=== PATIENT | female | born 1955 | race Caucasian/White ===

== ENCOUNTER 2018-08-31 01:30 | Emergency (ER) | payer BC ==
[~2018-08-31] VITALS: Ht 162.6 cm; Wt 102.1 kg
[2018-08-31 01:30] VITALS: BP_SYST 160
[2018-08-31] MEDS ORDERED: IBUPROFEN 600 MG TABLET PO ONE (01:45)
[2018-08-31 02:04] VITALS: BP_SYST 160
== END 2018-08-31 02:04 | disposition home or self-care (01) ==
LOC: SED 01:30
DX: S63.502A Unspecified sprain of left wrist, initial encounter (principal); E78.00 Pure hypercholesterolemia, unspecified; I10 Essential (primary) hypertension; X50.0XXA Overexertion from strenuous movement or load, initial encounter; Y93.89 Activity, other specified; Y92.89 Other specified places as the place of occurrence of the external cause; Y99.8 Other external cause status
CPT/HCPCS: 99283

== ENCOUNTER 2018-09-05 10:32 | Emergency (ER) | payer BC ==
[~2018-09-05] VITALS: Ht 162.6 cm; Wt 108.9 kg
[2018-09-05 10:39] VITALS: BP_SYST 111
--- NOTE | 2018-09-05 10:42 | NUR ---
Patient to ER bed 07 for evaluation. Side rails up. Report given to SIENA FARRELL.
--- NOTE | 2018-09-05 11:50 | NUR ---
KENY BLAIR at bedside examining patient.
[2018-09-05] MEDS: traMADol HCL HCL 50 MG TABLET (ULTRAM) PO ONE (12:17)
[2018-09-05] MEDS: KETOROLAC TROMETHAMINE 30 MG VIAL IM ONE (12:17)
--- NOTE | 2018-09-05 13:00 | NUR ---
Pt assisted to sitting position. Pt able to put slight pressure on R lower extremity with pain. Pt reports lower pain level 2/10 s/p medication, but cannot stand up at this time. Pt states friend will be picking her up after 2pm. Pt assisted into bed to position of comfort. Will continue t omonitor.
--- NOTE | 2018-09-05 13:55 | NUR ---
Patient given written and verbal discharge instructions and verbalizes understanding. ER MD BLAIR discussed with patient the results and treatment provided. Patient in stable condition. ID arm band removed. Rx of TRAMADOL given. Patient educated on pain management and to follow up with PMD. Pain Scale 2. Opportunity for questions provided and answered. Medication side effect fact sheet provided.
== END 2018-09-05 13:55 | disposition home or self-care (01) ==
LOC: SED 10:32
DX: S86.911A Strain of unspecified muscle(s) and tendon(s) at lower leg level, right leg, initial encounter (principal); M79.10 Myalgia, unspecified site; E78.00 Pure hypercholesterolemia, unspecified; I10 Essential (primary) hypertension; X50.0XXA Overexertion from strenuous movement or load, initial encounter; Y93.89 Activity, other specified; Y92.89 Other specified places as the place of occurrence of the external cause; Y99.8 Other external cause status
CPT/HCPCS: 96372; 99283; J1885

== ENCOUNTER 2018-10-17 06:01 | Inpatient (IN) | payer BC ==
[~2018-10-17] VITALS: Ht 160 cm; Wt 99.8 kg
[2018-10-17 06:44] VITALS: BP_SYST 101
[2018-10-17 07:25] LABS: BASOPHILS % (AUTO) 0.2 % (0.0-2.0); EOSINOPHILS # (AUTO) 2.2 K/uL (0.0-0.4); HEMATOCRIT 31.1 % (36-48); HEMOGLOBIN 10.3 g/dL (12.0-16.0); LYMPHOCYTES # (AUTO) 0.4 K/uL (1.0-5.5); LYMPHOCYTES % (AUTO) 2.7 % (20.5-51.5); MEAN CORPUSCULAR HEMOGLOBIN 31 pg (27-31); MEAN CORPUSCULAR HGB CONC 33 % (32-36); MEAN CORPUSCULAR VOLUME 93 fL (79.0-98.0); MONOCYTES # (AUTO) 0.7 K/uL (0.0-1.0); MONOCYTES % (AUTO) 4.6 % (1.7-9.3); NEUTROPHILS # (AUTO) 12.6 K/uL (1.8-7.7); NEUTROPHILS % (AUTO) 78.5 % (40.0-70.0); PLATELET COUNT (AUTO) 66 K/uL (130-430); RED BLOOD CELL COUNT(AUTO) 3.33 MIL/uL (4.2-6.2); RED CELL DISTRIBUTION WIDTH 15.7 % (9.0-15.0)
[2018-10-17 07:40] LABS: CALCIUM 7.1 mg/dL (8.4-11.0); CREATININE 3.03 mg/dL (0.55-1.30); TOTAL BILIRUBIN 0.6 mg/dL (0.0-1.0)
[2018-10-17 08:00] VITALS: BP_SYST 95
[2018-10-17] MEDS ORDERED: MORPHINE 2 MG/ML INJ. SYRINGE IVP PRN (09:00)
[2018-10-17] MEDS ORDERED: MORPHINE 4 MG/ML INJ. SYRINGE IVP PRN (09:00)
[2018-10-17] MEDS ORDERED: METOCLOPRAMIDE HCL 10 MG/2 ML VIAL IVP PRN (09:00)
[2018-10-17] MEDS ORDERED: DEXTROSE 50% JECT 50 ML DISP.SYRIN IVP PRN (09:15)
[2018-10-17] MEDS ORDERED: THIAMINE HCL 100 MG TABLET PO ONE (09:15)
[2018-10-17] MEDS ORDERED: LEVOFLOXACIN 500 MG/D5W 100 ML IV ONE (09:30)
[2018-10-17] MEDS ORDERED: PIPERACILLIN/TAZO 2.25G/DEX-IS 50 ML IV ONE (09:30)
[2018-10-17] MEDS ORDERED: PIPERACILLIN/TAZO 2.25G/DEX-IS 50 ML IV SCH (09:30)
[2018-10-17] MEDS: D5NS 1,000 ML IV SCH ×2 (10:25→17:00)
[2018-10-17] MEDS: metroNIDAZOLE 500 mg/NS 100 ML IV SCH ×2 (11:16→17:06)
[2018-10-17] MEDS: INSULIN REGULAR, HUMAN 100 UNITS/ML, 10 ML VIAL (novoLIN R) SUBCUT PRN ×2 (11:26→17:17)
[2018-10-17 12:00] VITALS: BP_SYST 110
[2018-10-17 14:14] LABS: BILIRUBIN,URINE NEGATIVE (NEGATIVE); BLOOD, URINE 2+ (NEGATIVE); CLARITY/URINE CLEAR (CLEAR); COLOR,URINE YELLOW (YELLOW); GLUCOSE,URINE NEGATIVE (NEGATIVE); KETONES,URINE NEGATIVE (NEGATIVE); LEUKOCYTE ESTERASE ,URINE NEGATIVE (NEGATIVE); NITRITE, URINE NEGATIVE (NEGATIVE); PROTEIN URINE 2+ (NEGATIVE); UROBILINOGEN,URINE 0.2 (0.2-1.0)
[2018-10-17 14:47] LABS: BACTERIA,URINE FEW /HPF (None Seen)
[2018-10-17 14:48] LABS: COARSE GRANULAR CASTS,URINE 0-10 /LPF (None Seen)
[2018-10-17 16:30] VITALS: BP_SYST 109
[2018-10-17] MEDS: PIPERACILLIN/TAZO 2.25G/DEX-IS 50 ML IV SCH ×2 (18:12→23:19)
[2018-10-17] MEDS ORDERED: MAGNESIUM CITRATE 300 ML ORAL SOLUTION PO ONE (19:00)
[2018-10-17] MEDS ORDERED: SORBITOL 70% SOLUTION, 30 ML UDBTL PO ONE (19:00)
[2018-10-17 19:08] VITALS: BP_SYST 134
[2018-10-18 00:20] VITALS: BP_SYST 97
[2018-10-18] MEDS: metroNIDAZOLE 500 mg/NS 100 ML IV SCH ×3 (00:26→16:55)
[2018-10-18] MEDS: D5NS 1,000 ML IV SCH ×3 (00:27→18:03)
[2018-10-18] MEDS: PIPERACILLIN/TAZO 2.25G/DEX-IS 50 ML IV SCH ×4 (05:26→23:40)
[2018-10-18] MEDS ORDERED: MEPERIDINE HCL/PF 100 MG/ML AMP ONE (07:39)
[2018-10-18] MEDS ORDERED: MIDAZOLAM HCL 5 MG/5 ML VIAL ONE ×2 (07:39)
[2018-10-18] MEDS ORDERED: SIMETHICONE 40 MG/0.6 ML ML ONE (07:40)
[2018-10-18] MEDS: THIAMINE HCL 100 MG TABLET PO SCH (09:59)
[2018-10-18 10:12] VITALS: BP_SYST 112
[2018-10-18 10:47] LABS: BASOPHILS % (AUTO) 0.3 % (0.0-2.0); EOSINOPHILS # (AUTO) 0.1 K/uL (0.0-0.4); EOSINOPHILS % (AUTO) 0.5 % (0.0-4.0); HEMATOCRIT 31.7 % (36-48); HEMOGLOBIN 10.2 g/dL (12.0-16.0); LYMPHOCYTES # (AUTO) 0.6 K/uL (1.0-5.5); LYMPHOCYTES % (AUTO) 4.6 % (20.5-51.5); MEAN CORPUSCULAR HEMOGLOBIN 30 pg (27-31); MEAN CORPUSCULAR HGB CONC 32 % (32-36); MEAN CORPUSCULAR VOLUME 95 fL (79.0-98.0); MONOCYTES # (AUTO) 0.8 K/uL (0.0-1.0); NEUTROPHILS # (AUTO) 11.8 K/uL (1.8-7.7); NEUTROPHILS % (AUTO) 88.6 % (40.0-70.0); RED BLOOD CELL COUNT(AUTO) 3.34 MIL/uL (4.2-6.2); RED CELL DISTRIBUTION WIDTH 15.6 % (9.0-15.0); WHITE BLOOD COUNT (AUTO) 13.3 K/uL (4.8-10.8)
[2018-10-18 11:04] LABS: CREATININE 3.04 mg/dL (0.55-1.30); POTASSIUM 3.3 mmol/L (3.5-5.1)
[2018-10-18 11:08] LABS: INR 1.1 (0.8-1.2); PROTHROMBIN TIME 10.8 SECS (9.5-12.5)
[2018-10-18 11:09] LABS: CALCIUM 6.9 mg/dL (8.4-11.0)
[2018-10-18 11:10] LABS: ALBUMIN 1.6 g/dL (3.4-4.8); TOTAL BILIRUBIN 0.3 mg/dL (0.0-1.0)
[2018-10-18 11:39] VITALS: BP_SYST 112
[2018-10-18] MEDS: INSULIN REGULAR, HUMAN 100 UNITS/ML, 10 ML VIAL (novoLIN R) SUBCUT PRN ×2 (11:42→23:44)
[2018-10-18] MEDS ORDERED: POTASSIUM CHLORIDE 20 MEQ TAB.PRT.SR PO ONE (12:30)
[2018-10-18 13:49] LABS: PLATELET COUNT (AUTO) 72 K/uL (130-430)
[2018-10-18 16:04] VITALS: BP_SYST 120
[2018-10-18] MEDS ORDERED: BISACODYL 5 MG TABLET.DR (DULCOLAX) PO ONE (17:00)
[2018-10-18 20:00] VITALS: BP_SYST 116
[2018-10-19] VITALS (7 sets, daily range): BP systolic 96–139
[2018-10-19] MEDS: ACETAMINOPHEN 325 MG TABLET PO PRN (00:30)
[2018-10-19] MEDS: metroNIDAZOLE 500 mg/NS 100 ML IV SCH ×3 (00:31→16:54)
[2018-10-19] MEDS ORDERED: ALBUTEROL SULFATE 0.083% 2.5 MG/3 ML VIAL.NEB INH ONE (02:41)
[2018-10-19] MEDS: D5NS 1,000 ML IV SCH ×4 (05:33→23:20)
[2018-10-19] MEDS: PIPERACILLIN/TAZO 2.25G/DEX-IS 50 ML IV SCH ×4 (05:34→23:19)
[2018-10-19] MEDS: INSULIN REGULAR, HUMAN 100 UNITS/ML, 10 ML VIAL (novoLIN R) SUBCUT PRN ×4 (05:41→23:24)
[2018-10-19] MEDS: LEVOFLOXACIN 250 MG/D5W 50 ML IV SCH (08:26)
[2018-10-19] MEDS: THIAMINE HCL 100 MG TABLET PO SCH (09:49)
[2018-10-19] MEDS: ONDANSETRON HCL 4 MG/2 ML VIAL IVP PRN (20:22)
[2018-10-20] VITALS (7 sets, daily range): BP systolic 111–136
[2018-10-20] MEDS: metroNIDAZOLE 500 mg/NS 100 ML IV SCH ×3 (01:10→17:06)
[2018-10-20] MEDS: PIPERACILLIN/TAZO 2.25G/DEX-IS 50 ML IV SCH ×3 (05:00→18:11)
[2018-10-20] MEDS: INSULIN REGULAR, HUMAN 100 UNITS/ML, 10 ML VIAL (novoLIN R) SUBCUT PRN ×4 (05:02→20:39)
[2018-10-20 06:18] LABS: BASOPHILS % (AUTO) 0.3 % (0.0-2.0); EOSINOPHILS # (AUTO) 0.1 K/uL (0.0-0.4); EOSINOPHILS % (AUTO) 1.2 % (0.0-4.0); HEMATOCRIT 28.2 % (36-48); HEMOGLOBIN 9.1 g/dL (12.0-16.0); LYMPHOCYTES # (AUTO) 1.2 K/uL (1.0-5.5); LYMPHOCYTES % (AUTO) 10.1 % (20.5-51.5); MEAN CORPUSCULAR HEMOGLOBIN 31 pg (27-31); MEAN CORPUSCULAR HGB CONC 32 % (32-36); MEAN CORPUSCULAR VOLUME 95 fL (79.0-98.0); MONOCYTES # (AUTO) 0.8 K/uL (0.0-1.0); MONOCYTES % (AUTO) 6.8 % (1.7-9.3); NEUTROPHILS # (AUTO) 9.8 K/uL (1.8-7.7); NEUTROPHILS % (AUTO) 81.6 % (40.0-70.0); PLATELET COUNT (AUTO) 76 K/uL (130-430); RED BLOOD CELL COUNT(AUTO) 2.96 MIL/uL (4.2-6.2); RED CELL DISTRIBUTION WIDTH 16.4 % (9.0-15.0)
[2018-10-20 06:50] LABS: CALCIUM 7.3 mg/dL (8.4-11.0); CREATININE 2.66 mg/dL (0.55-1.30); POTASSIUM 3.9 mmol/L (3.5-5.1)
[2018-10-20 07:00] LABS: ALBUMIN 1.4 g/dL (3.4-4.8); TOTAL BILIRUBIN 0.5 mg/dL (0.0-1.0)
[2018-10-20] MEDS: THIAMINE HCL 100 MG TABLET PO SCH (08:36)
[2018-10-20] MEDS: ACETAMINOPHEN 325 MG TABLET PO PRN (12:30)
[2018-10-20] MEDS: PROMETHAZINE-DM 6.25 MG-15 MG/5 ML UDC PO PRN ×2 (14:24→18:16)
[2018-10-20] MEDS: ALBUTEROL SULFATE 0.083% 2.5 MG/3 ML VIAL.NEB INH PRN ×3 (16:14→18:25)
[2018-10-20] MEDS: D5NS 1,000 ML IV SCH (16:14)
[2018-10-21 00:13] VITALS: BP_SYST 136
[2018-10-21] MEDS: PROMETHAZINE-DM 6.25 MG-15 MG/5 ML UDC PO PRN ×3 (01:16→18:21)
[2018-10-21] MEDS: ACETAMINOPHEN 325 MG TABLET PO PRN ×2 (01:17→18:09)
[2018-10-21] MEDS: PIPERACILLIN/TAZO 2.25G/DEX-IS 50 ML IV SCH ×4 (01:47→18:10)
[2018-10-21] MEDS: metroNIDAZOLE 500 mg/NS 100 ML IV SCH ×3 (01:48→16:51)
[2018-10-21] MEDS: D5NS 1,000 ML IV SCH ×2 (03:03→18:28)
[2018-10-21] MEDS: INSULIN REGULAR, HUMAN 100 UNITS/ML, 10 ML VIAL (novoLIN R) SUBCUT PRN ×4 (06:19→21:02)
[2018-10-21 06:46] LABS: CALCIUM 7.1 mg/dL (8.4-11.0); CREATININE 2.58 mg/dL (0.55-1.30); POTASSIUM 3.5 mmol/L (3.5-5.1)
[2018-10-21 07:03] LABS: ALBUMIN 1.3 g/dL (3.4-4.8); TOTAL BILIRUBIN 0.6 mg/dL (0.0-1.0)
[2018-10-21 07:21] LABS: BASOPHILS % (AUTO) 0.1 % (0.0-2.0); EOSINOPHILS # (AUTO) 0.2 K/uL (0.0-0.4); EOSINOPHILS % (AUTO) 1.4 % (0.0-4.0); HEMATOCRIT 26.7 % (36-48); HEMOGLOBIN 8.8 g/dL (12.0-16.0); LYMPHOCYTES # (AUTO) 1.2 K/uL (1.0-5.5); LYMPHOCYTES % (AUTO) 9.5 % (20.5-51.5); MEAN CORPUSCULAR HEMOGLOBIN 31 pg (27-31); MEAN CORPUSCULAR HGB CONC 33 % (32-36); MEAN CORPUSCULAR VOLUME 94 fL (79.0-98.0); MONOCYTES % (AUTO) 7.8 % (1.7-9.3); NEUTROPHILS # (AUTO) 10.6 K/uL (1.8-7.7); NEUTROPHILS % (AUTO) 81.2 % (40.0-70.0); PLATELET COUNT (AUTO) 105 K/uL (130-430); RED BLOOD CELL COUNT(AUTO) 2.83 MIL/uL (4.2-6.2); RED CELL DISTRIBUTION WIDTH 16.4 % (9.0-15.0)
[2018-10-21 07:58] VITALS: BP_SYST 117
[2018-10-21] MEDS: THIAMINE HCL 100 MG TABLET PO SCH (08:46)
[2018-10-21] MEDS: LEVOFLOXACIN 250 MG/D5W 50 ML IV SCH (08:47)
[2018-10-21] MEDS: ONDANSETRON HCL 4 MG/2 ML VIAL IVP PRN ×2 (10:10→18:50)
[2018-10-21] MEDS ORDERED: NOR10 PO (12:17)
[2018-10-21] MEDS ORDERED: TRAM-350 PO (12:17)
[2018-10-21] MEDS ORDERED: PRO20 PO (12:17)
[2018-10-21] MEDS ORDERED: SOLI10TA2 PO (12:17)
[2018-10-21] MEDS ORDERED: LIP20 PO (12:17)
[2018-10-21] MEDS ORDERED: IBUP-1971 PO (12:17)
[2018-10-21 12:40] VITALS: BP_SYST 131
[2018-10-21 16:30] VITALS: BP_SYST 136
[2018-10-21] MEDS: ALBUTEROL SULFATE 0.083% 2.5 MG/3 ML VIAL.NEB INH PRN (18:32)
[2018-10-21 20:47] VITALS: BP_SYST 103
[2018-10-22] MEDS: metroNIDAZOLE 500 mg/NS 100 ML IV SCH ×3 (01:30→16:12)
[2018-10-22 02:12] VITALS: BP_SYST 110
[2018-10-22] MEDS: PIPERACILLIN/TAZO 2.25G/DEX-IS 50 ML IV SCH ×4 (05:26→17:34)
[2018-10-22] MEDS: INSULIN REGULAR, HUMAN 100 UNITS/ML, 10 ML VIAL (novoLIN R) SUBCUT PRN ×4 (06:24→22:34)
[2018-10-22] MEDS: ALBUTEROL SULFATE 0.083% 2.5 MG/3 ML VIAL.NEB INH PRN (07:34)
[2018-10-22] MEDS: ONDANSETRON HCL 4 MG/2 ML VIAL IVP PRN ×2 (07:37→16:27)
[2018-10-22] MEDS: ACETAMINOPHEN 325 MG TABLET PO PRN ×2 (08:34→16:27)
[2018-10-22] MEDS: PROMETHAZINE-DM 6.25 MG-15 MG/5 ML UDC PO PRN (08:34)
[2018-10-22] MEDS: THIAMINE HCL 100 MG TABLET PO SCH (08:34)
[2018-10-22 08:35] VITALS: BP_SYST 139
[2018-10-22] MEDS ORDERED: FUROSEMIDE 20 MG/2 ML VIAL IVP ONE ×2 (09:30→16:00)
[2018-10-22 12:30] VITALS: BP_SYST 134
[2018-10-22] MEDS: IPRATROPIUM BROM 0.5 MG/2.5 ML VIAL.NEB (ATROVENT) INH SCH ×2 (13:34→19:53)
[2018-10-22] MEDS: ALBUTEROL SULFATE 0.083% 2.5 MG/3 ML VIAL.NEB INH SCH ×2 (13:34→19:53)
[2018-10-22 13:40] VITALS: BP_SYST 136
[2018-10-22 16:10] VITALS: BP_SYST 139
[2018-10-22 20:54] VITALS: BP_SYST 127
[2018-10-23] VITALS (9 sets, daily range): BP systolic 128–150
[2018-10-23] MEDS: IPRATROPIUM BROM 0.5 MG/2.5 ML VIAL.NEB (ATROVENT) INH SCH ×4 (01:00→19:18)
[2018-10-23] MEDS: ALBUTEROL SULFATE 0.083% 2.5 MG/3 ML VIAL.NEB INH SCH ×4 (01:00→19:18)
[2018-10-23] MEDS: PIPERACILLIN/TAZO 2.25G/DEX-IS 50 ML IV SCH ×2 (01:22→06:26)
[2018-10-23] MEDS ORDERED: NS 500 ML IV ONE (02:00)
[2018-10-23] MEDS: metroNIDAZOLE 500 mg/NS 100 ML IV SCH ×3 (02:46→17:11)
[2018-10-23] MEDS: ALBUTEROL SULFATE 0.083% 2.5 MG/3 ML VIAL.NEB INH PRN (04:48)
[2018-10-23 05:40] LABS: EOSINOPHILS # (AUTO) 0.2 K/uL (0.0-0.4); MEAN CORPUSCULAR HEMOGLOBIN 31 pg (27-31); RED BLOOD CELL COUNT(AUTO) 2.93 MIL/uL (4.2-6.2)
[2018-10-23] MEDS: INSULIN REGULAR, HUMAN 100 UNITS/ML, 10 ML VIAL (novoLIN R) SUBCUT PRN ×4 (06:29→20:24)
[2018-10-23 06:57] LABS: BASOPHILS # (AUTO) 0.1 K/uL (0.0-0.2); BASOPHILS % (AUTO) 0.5 % (0.0-2.0); EOSINOPHILS % (AUTO) 1.2 % (0.0-4.0); HEMATOCRIT 27.4 % (36-48); LYMPHOCYTES # (AUTO) 1.7 K/uL (1.0-5.5); LYMPHOCYTES % (AUTO) 9.6 % (20.5-51.5); MEAN CORPUSCULAR HGB CONC 33 % (32-36); MEAN CORPUSCULAR VOLUME 94 fL (79.0-98.0); MONOCYTES # (AUTO) 1.1 K/uL (0.0-1.0); MONOCYTES % (AUTO) 6.5 % (1.7-9.3); NEUTROPHILS # (AUTO) 14.2 K/uL (1.8-7.7); NEUTROPHILS % (AUTO) 82.2 % (40.0-70.0); PLATELET COUNT (AUTO) 152 K/uL (130-430); RED CELL DISTRIBUTION WIDTH 16.2 % (9.0-15.0)
[2018-10-23 07:01] LABS: CREATININE 2.43 mg/dL (0.55-1.30)
[2018-10-23 07:02] LABS: WHITE BLOOD COUNT (AUTO) 17.3 K/uL (4.8-10.8)
[2018-10-23 07:07] LABS: CALCIUM 6.5 mg/dL (8.4-11.0)
[2018-10-23] MEDS: THIAMINE HCL 100 MG TABLET PO SCH (08:20)
[2018-10-23] MEDS: LEVOFLOXACIN 250 MG/D5W 50 ML IV SCH (08:20)
[2018-10-23] MEDS ORDERED: POTASSIUM CHLORIDE 20 MEQ TAB.PRT.SR PO ONE (09:15)
[2018-10-23] MEDS ORDERED: BUDESONIDE 0.5 MG/2 ML AMPUL.NEB INH ONE ×2 (09:30→10:15)
[2018-10-23] MEDS ORDERED: methylPREDNISolone SOD SUCC 40 MG/ML VIAL IVP ONE (09:30)
[2018-10-23] MEDS ORDERED: CEFEPIME 1 GM in D5W 50 ML IV ONE (09:30)
[2018-10-23] MEDS: PROMETHAZINE-DM 6.25 MG-15 MG/5 ML UDC PO PRN ×2 (18:36→22:28)
[2018-10-23] MEDS: BUDESONIDE 0.5 MG/2 ML AMPUL.NEB INH SCH (19:36)
[2018-10-23] MEDS: CEFEPIME 1 GM in D5W 50 ML IV SCH (20:19)
[2018-10-24 00:30] VITALS: BP_SYST 119
[2018-10-24] MEDS: ALBUTEROL SULFATE 0.083% 2.5 MG/3 ML VIAL.NEB INH SCH ×3 (00:37→13:57)
[2018-10-24] MEDS: IPRATROPIUM BROM 0.5 MG/2.5 ML VIAL.NEB (ATROVENT) INH SCH ×3 (00:37→13:57)
[2018-10-24] MEDS: PROMETHAZINE-DM 6.25 MG-15 MG/5 ML UDC PO PRN ×3 (02:16→12:44)
[2018-10-24 06:02] LABS: BASOPHILS % (AUTO) 0.3 % (0.0-2.0); HEMATOCRIT 24.5 % (36-48); HEMOGLOBIN 8.2 g/dL (12.0-16.0); LYMPHOCYTES # (AUTO) 0.7 K/uL (1.0-5.5); LYMPHOCYTES % (AUTO) 6.1 % (20.5-51.5); MEAN CORPUSCULAR HEMOGLOBIN 31 pg (27-31); MEAN CORPUSCULAR HGB CONC 33 % (32-36); MEAN CORPUSCULAR VOLUME 93 fL (79.0-98.0); MONOCYTES # (AUTO) 0.5 K/uL (0.0-1.0); MONOCYTES % (AUTO) 4.5 % (1.7-9.3); NEUTROPHILS # (AUTO) 10.6 K/uL (1.8-7.7); NEUTROPHILS % (AUTO) 89.1 % (40.0-70.0); PLATELET COUNT (AUTO) 174 K/uL (130-430); RED BLOOD CELL COUNT(AUTO) 2.64 MIL/uL (4.2-6.2); RED CELL DISTRIBUTION WIDTH 16.3 % (9.0-15.0); WHITE BLOOD COUNT (AUTO) 11.9 K/uL (4.8-10.8)
[2018-10-24] MEDS: INSULIN REGULAR, HUMAN 100 UNITS/ML, 10 ML VIAL (novoLIN R) SUBCUT PRN ×2 (06:23→11:33)
[2018-10-24 06:38] LABS: CREATININE 2.04 mg/dL (0.55-1.30); POTASSIUM 3.3 mmol/L (3.5-5.1)
[2018-10-24 07:09] LABS: CALCIUM 6.4 mg/dL (8.4-11.0)
[2018-10-24 08:00] VITALS: BP_SYST 136
[2018-10-24] MEDS: BUDESONIDE 0.5 MG/2 ML AMPUL.NEB INH SCH (08:32)
[2018-10-24] MEDS: THIAMINE HCL 100 MG TABLET PO SCH (08:52)
[2018-10-24] MEDS: CEFEPIME 1 GM in D5W 50 ML IV SCH (08:52)
[2018-10-24] MEDS ORDERED: POTASSIUM CHLORIDE 20 MEQ TAB.PRT.SR PO ONE (09:30)
[2018-10-24] MEDS ORDERED: PREDNISONE 20 MG TABLET PO ONE (11:15)
[2018-10-24 12:18] VITALS: BP_SYST 125
[2018-10-24 12:58] VITALS: BP_SYST 125
[2018-10-24] MEDS ORDERED: PREDNISONE 20 MG TABLET PO SCH (21:00)
== END 2018-10-24 14:20 | DRG 871 ==
LOC: SMU 06:01 → STU 06:25 → SMU 10-18 10:38
PROVIDERS: ADMIT Internal Medicine Hospice and Palliative Medicine; ATTEND Internal Medicine Hospice and Palliative Medicine
PROC: 0DBL8ZZ Excision of Transverse Colon, Via Natural or Artificial Opening Endoscopic (ICD-10-PCS; 2018-10-18)
PROC: 0DBN8ZZ Excision of Sigmoid Colon, Via Natural or Artificial Opening Endoscopic (ICD-10-PCS; 2018-10-18)
PROC: 0DBK8ZZ Excision of Ascending Colon, Via Natural or Artificial Opening Endoscopic (ICD-10-PCS; principal; 2018-10-18 09:30)
DX: A41.50 Gram-negative sepsis, unspecified (principal); I50.31 Acute diastolic (congestive) heart failure; A09 Infectious gastroenteritis and colitis, unspecified; I13.0 Hypertensive heart and chronic kidney disease with heart failure and stage 1 through stage 4 chronic kidney disease, or unspecified chronic kidney disease; N39.0 Urinary tract infection, site not specified; D64.9 Anemia, unspecified; D69.6 Thrombocytopenia, unspecified; E11.22 Type 2 diabetes mellitus with diabetic chronic kidney disease; E66.9 Obesity, unspecified; J98.01 Acute bronchospasm; K57.30 Diverticulosis of large intestine without perforation or abscess without bleeding; K63.5 Polyp of colon; K64.9 Unspecified hemorrhoids; N18.9 Chronic kidney disease, unspecified; Z90.710 Acquired absence of both cervix and uterus; Z90.49 Acquired absence of other specified parts of digestive tract; Z79.899 Other long term (current) drug therapy; Z68.39 Body mass index [BMI] 39.0-39.9, adult
CPT/HCPCS: 36415; 36600; 45380; 71045; 71250-TC; 76700-TC; 80048; 80053; 81000-TC; 82803-TC; 82962; 83605; 83880; 85025; 85610-TC; 85730-TC; 87040-TC; 87045-TC; 87046; 87086; 87230-TC; 88305; 93306; 93970; 94640; 94760; G0378; J0692; J1030; J1815; J1940; J1956; J2175; J2250; J2270; J2405; J2543; J2765; J3490; J7040; J7042; J7060; J7512; J7613; J7626

== ENCOUNTER 2018-11-03 08:01 | Inpatient (IN) | payer BC ==
[~2018-11-03] VITALS: Ht 162.6 cm; Wt 102.1 kg
[2018-11-03 08:01] VITALS: BP_SYST 99
[~2018-11-03 08:01] MED LIST: IBUP-1971 PO; LIP20 PO; NOR10 PO; PRO20 PO; SOLI10TA2 PO; TRAM-350 PO
[2018-11-03] MEDS ORDERED: NACL 0.9% 1,000 ML IV ONE (09:00)
[2018-11-03] MEDS ORDERED: ACETAMINOPHEN 325 MG TABLET PO ONE (09:00)
[2018-11-03 09:30] LABS: BASOPHILS % (AUTO) 0.2 % (0.0-2.0); EOSINOPHILS # (AUTO) 0.1 K/uL (0.0-0.4); EOSINOPHILS % (AUTO) 0.5 % (0.0-4.0); HEMOGLOBIN 9.4 g/dL (12.0-16.0); LYMPHOCYTES # (AUTO) 1.8 K/uL (1.0-5.5); LYMPHOCYTES % (AUTO) 9.6 % (20.5-51.5); MEAN CORPUSCULAR HEMOGLOBIN 31 pg (27-31); MEAN CORPUSCULAR HGB CONC 32 % (32-36); MEAN CORPUSCULAR VOLUME 94 fL (79.0-98.0); MONOCYTES # (AUTO) 0.7 K/uL (0.0-1.0); MONOCYTES % (AUTO) 3.7 % (1.7-9.3); NEUTROPHILS # (AUTO) 15.8 K/uL (1.8-7.7); PLATELET COUNT (AUTO) 217 K/uL (130-430); RED BLOOD CELL COUNT(AUTO) 3.08 MIL/uL (4.2-6.2); RED CELL DISTRIBUTION WIDTH 16.4 % (9.0-15.0); WHITE BLOOD COUNT (AUTO) 18.4 K/uL (4.8-10.8)
[2018-11-03 09:40] LABS: CREATININE 1.92 mg/dL (0.55-1.30); POTASSIUM 3.8 mmol/L (3.5-5.1)
[2018-11-03 09:56] LABS: ALBUMIN 2.4 g/dL (3.4-4.8); TOTAL BILIRUBIN 0.5 mg/dL (0.0-1.0)
[2018-11-03 09:58] LABS: CALCIUM 6.6 mg/dL (8.4-11.0)
[2018-11-03] MEDS ORDERED: cefTRIAXone 1 GM in D5W 50 ML IV ONE (10:15)
[2018-11-03 10:22] LABS: BILIRUBIN,URINE NEGATIVE (NEGATIVE); BLOOD, URINE 2+ (NEGATIVE); CLARITY/URINE CLEAR (CLEAR); COLOR,URINE YELLOW (YELLOW); GLUCOSE,URINE NEGATIVE (NEGATIVE); KETONES,URINE NEGATIVE (NEGATIVE); LEUKOCYTE ESTERASE ,URINE NEGATIVE (NEGATIVE); NITRITE, URINE NEGATIVE (NEGATIVE); PROTEIN URINE NEGATIVE (NEGATIVE); UROBILINOGEN,URINE 0.2 (0.2-1.0)
[2018-11-03 10:36] LABS: BACTERIA,URINE FEW /HPF (None Seen); MUCUS,URINE 1+ /LPF (None Seen); WBC,URINE 0-3 /HPF (0-3)
[2018-11-03] MEDS ORDERED: cefTRIAXone 1 GM in D5W 50 ML IV SCH (12:00)
[2018-11-03] MEDS ORDERED: cefTRIAXone 1 GM VIAL ONE (12:14)
[2018-11-03] MEDS ORDERED: MONT10TA22 PO (15:29)
[2018-11-03] MEDS ORDERED: IPRA3AMP9 INH (15:29)
[2018-11-03] MEDS ORDERED: FLUT1DIS3 IH (15:29)
[2018-11-03] MEDS ORDERED: PRED20TA PO (15:29)
[2018-11-03] MEDS ORDERED: BUDE0.5A INH (15:29)
[2018-11-03] MEDS ORDERED: FAMO20TA8 PO (15:29)
[2018-11-03] MEDS ORDERED: ALBMDI INH (15:29)
[2018-11-03] MEDS ORDERED: LEVOFLOXACIN 500 MG/D5W 100 ML IV SCH (15:30)
[2018-11-03] MEDS ORDERED: IPRATROPIUM/ALBUTEROL SULFATE 3 ML AMPUL.NEB (DUONEB) INH ONE (15:30)
[2018-11-03] MEDS ORDERED: ALBUTEROL SULFATE 0.083% 2.5 MG/3 ML VIAL.NEB INH PRN (15:45)
[2018-11-03] MEDS ORDERED: AZITHROMYCIN 500 MG in NS 250 ML IV ONE (15:45)
[2018-11-03] MEDS ORDERED: IPRATROPIUM BROM 0.5 MG/2.5 ML VIAL.NEB (ATROVENT) INH PRN (15:45)
[2018-11-03 16:07] VITALS: BP_SYST 99
[2018-11-03 16:30] VITALS: BP_SYST 119
[2018-11-03] MEDS: NACL 0.9% 1,000 ML IV SCH (16:39)
[2018-11-03] MEDS: CEFEPIME 1 GM in D5W 50 ML IV SCH (16:53)
[2018-11-03 18:37] VITALS: BP_SYST 119
[2018-11-03] MEDS: IPRATROPIUM BROM 0.5 MG/2.5 ML VIAL.NEB (ATROVENT) INH SCH (19:10)
[2018-11-03] MEDS: ALBUTEROL SULFATE 0.083% 2.5 MG/3 ML VIAL.NEB INH SCH (19:10)
[2018-11-03] MEDS: BUDESONIDE 0.5 MG/2 ML AMPUL.NEB INH SCH (19:45)
[2018-11-03] MEDS ORDERED: PREDNISONE 20 MG TABLET PO SCH (21:00)
[2018-11-03 21:22] VITALS: BP_SYST 116
[2018-11-04 00:17] VITALS: BP_SYST 136
[2018-11-04] MEDS: ALBUTEROL SULFATE 0.083% 2.5 MG/3 ML VIAL.NEB INH SCH ×4 (00:20→19:19)
[2018-11-04] MEDS: IPRATROPIUM BROM 0.5 MG/2.5 ML VIAL.NEB (ATROVENT) INH SCH ×4 (00:20→19:19)
[2018-11-04] MEDS: BUDESONIDE 0.5 MG/2 ML AMPUL.NEB INH SCH ×2 (07:08→19:19)
[2018-11-04 08:00] VITALS: BP_SYST 129
[2018-11-04 08:39] LABS: BASOPHILS # (AUTO) 0.1 K/uL (0.0-0.2); BASOPHILS % (AUTO) 0.7 % (0.0-2.0); EOSINOPHILS # (AUTO) 0.2 K/uL (0.0-0.4); EOSINOPHILS % (AUTO) 1.4 % (0.0-4.0); HEMATOCRIT 27.8 % (36-48); HEMOGLOBIN 9.2 g/dL (12.0-16.0); LYMPHOCYTES # (AUTO) 1.8 K/uL (1.0-5.5); LYMPHOCYTES % (AUTO) 15.5 % (20.5-51.5); MEAN CORPUSCULAR HEMOGLOBIN 31 pg (27-31); MEAN CORPUSCULAR HGB CONC 33 % (32-36); MEAN CORPUSCULAR VOLUME 94 fL (79.0-98.0); MONOCYTES # (AUTO) 0.8 K/uL (0.0-1.0); MONOCYTES % (AUTO) 6.9 % (1.7-9.3); NEUTROPHILS # (AUTO) 8.5 K/uL (1.8-7.7); NEUTROPHILS % (AUTO) 75.5 % (40.0-70.0); PLATELET COUNT (AUTO) 183 K/uL (130-430); RED BLOOD CELL COUNT(AUTO) 2.96 MIL/uL (4.2-6.2); RED CELL DISTRIBUTION WIDTH 16.4 % (9.0-15.0); WHITE BLOOD COUNT (AUTO) 11.3 K/uL (4.8-10.8)
[2018-11-04 08:54] LABS: ALBUMIN 2.3 g/dL (3.4-4.8); CREATININE 1.67 mg/dL (0.55-1.30); POTASSIUM 3.6 mmol/L (3.5-5.1); TOTAL BILIRUBIN 0.5 mg/dL (0.0-1.0)
[2018-11-04 08:57] LABS: CALCIUM 6.4 mg/dL (8.4-11.0)
[2018-11-04] MEDS: AZITHROMYCIN 500 MG in NS 250 ML IV SCH (09:16)
[2018-11-04] MEDS ORDERED: FLUoxetine HCL 20 MG CAPSULE (PROzac) PO ONE (09:30)
[2018-11-04] MEDS ORDERED: amLODIPine BESYLATE 10 MG TABLET PO ONE (09:30)
[2018-11-04] MEDS: NACL 0.9% 1,000 ML IV SCH ×3 (10:57→22:02)
[2018-11-04 11:34] VITALS: BP_SYST 136
[2018-11-04 13:21] LABS: INR 1.1 (0.8-1.2); PROTHROMBIN TIME 11.5 SECS (9.5-12.5)
[2018-11-04] MEDS ORDERED: IOHEXOL 50 ML IV ONE (13:37)
[2018-11-04] MEDS ORDERED: ONDANSETRON HCL 4 MG/2 ML VIAL IVP PRN (14:00)
[2018-11-04] MEDS ORDERED: fentaNYL CITRATE/PF 100 MCG/2 ML AMP IVP PRN ×2 (14:00)
[2018-11-04] MEDS ORDERED: KETOROLAC TROMETHAMINE 30 MG VIAL IVP PRN (14:00)
[2018-11-04 15:15] VITALS: BP_SYST 119
[2018-11-04] MEDS: CEFEPIME 1 GM in D5W 50 ML IV SCH (16:43)
[2018-11-04 20:04] VITALS: BP_SYST 120
[2018-11-04] MEDS ORDERED: ATORVASTATIN 20 MG TABLET PO SCH (21:00)
[2018-11-04] MEDS ORDERED: MONTELUKAST 10 MG TABLET PO SCH (21:00)
[2018-11-05] VITALS: BP_SYST 133
[2018-11-05] MEDS: IPRATROPIUM BROM 0.5 MG/2.5 ML VIAL.NEB (ATROVENT) INH SCH ×3 (01:00→13:20)
[2018-11-05] MEDS: ALBUTEROL SULFATE 0.083% 2.5 MG/3 ML VIAL.NEB INH SCH ×3 (01:00→13:20)
[2018-11-05] MEDS: BUDESONIDE 0.5 MG/2 ML AMPUL.NEB INH SCH (07:04)
[2018-11-05 07:27] LABS: BASOPHILS # (AUTO) 0.1 K/uL (0.0-0.2); BASOPHILS % (AUTO) 0.7 % (0.0-2.0); EOSINOPHILS # (AUTO) 0.2 K/uL (0.0-0.4); EOSINOPHILS % (AUTO) 1.8 % (0.0-4.0); HEMATOCRIT 32.3 % (36-48); HEMOGLOBIN 10.7 g/dL (12.0-16.0); LYMPHOCYTES # (AUTO) 1.9 K/uL (1.0-5.5); LYMPHOCYTES % (AUTO) 19.1 % (20.5-51.5); MEAN CORPUSCULAR HEMOGLOBIN 31 pg (27-31); MEAN CORPUSCULAR HGB CONC 33 % (32-36); MEAN CORPUSCULAR VOLUME 95 fL (79.0-98.0); MONOCYTES # (AUTO) 0.7 K/uL (0.0-1.0); MONOCYTES % (AUTO) 6.6 % (1.7-9.3); NEUTROPHILS # (AUTO) 7.2 K/uL (1.8-7.7); NEUTROPHILS % (AUTO) 71.8 % (40.0-70.0); PLATELET COUNT (AUTO) 227 K/uL (130-430); RED BLOOD CELL COUNT(AUTO) 3.42 MIL/uL (4.2-6.2); RED CELL DISTRIBUTION WIDTH 16.4 % (9.0-15.0); WHITE BLOOD COUNT (AUTO) 10.1 K/uL (4.8-10.8)
[2018-11-05 07:33] LABS: ALBUMIN 2.6 g/dL (3.4-4.8); CREATININE 1.28 mg/dL (0.55-1.30); POTASSIUM 4.1 mmol/L (3.5-5.1); TOTAL BILIRUBIN 0.6 mg/dL (0.0-1.0)
[2018-11-05 07:43] LABS: CALCIUM 6.7 mg/dL (8.4-11.0)
[2018-11-05 08:00] VITALS: BP_SYST 118
[2018-11-05] MEDS ORDERED: amLODIPine BESYLATE 10 MG TABLET PO SCH (09:00)
[2018-11-05] MEDS ORDERED: FLUoxetine HCL 20 MG CAPSULE (PROzac) PO SCH (09:00)
[2018-11-05] MEDS: AZITHROMYCIN 500 MG in NS 250 ML IV SCH (09:28)
[2018-11-05 11:25] VITALS: BP_SYST 128
[2018-11-05 15:48] VITALS: BP_SYST 116
[2018-11-05] MEDS ORDERED: TAMS-11 PO (16:23)
[2018-11-05] MEDS ORDERED: LEVO750T45 PO (16:24)
[2018-11-05] MEDS: CEFEPIME 1 GM in D5W 50 ML IV SCH (16:28)
[2018-11-05 16:44] VITALS: BP_SYST 116
== END 2018-11-05 18:01 | disposition home or self-care (01) | DRG 854 ==
LOC: SED 08:01 → STU 11:50 → SMU 11-04 10:25
PROVIDERS: ADMIT Internal Medicine; ATTEND Internal Medicine
PROC: 0T778DZ Dilation of Left Ureter with Intraluminal Device, Via Natural or Artificial Opening Endoscopic (ICD-10-PCS; 2018-11-04)
PROC: BT1F1ZZ Fluoroscopy of Left Kidney, Ureter and Bladder using Low Osmolar Contrast (ICD-10-PCS; principal; 2018-11-04 13:30)
DX: A41.9 Sepsis, unspecified organism (principal); N13.6 Pyonephrosis; N20.1 Calculus of ureter; E11.22 Type 2 diabetes mellitus with diabetic chronic kidney disease; E66.9 Obesity, unspecified; D64.9 Anemia, unspecified; J44.9 Chronic obstructive pulmonary disease, unspecified; E78.5 Hyperlipidemia, unspecified; E86.0 Dehydration; I12.9 Hypertensive chronic kidney disease with stage 1 through stage 4 chronic kidney disease, or unspecified chronic kidney disease; N18.9 Chronic kidney disease, unspecified; Z90.49 Acquired absence of other specified parts of digestive tract; Z90.710 Acquired absence of both cervix and uterus; Z87.891 Personal history of nicotine dependence; Z68.38 Body mass index [BMI] 38.0-38.9, adult
CPT/HCPCS: 36415; 36600; 71045; 76000; 80053; 81000-TC; 82803-TC; 83605; 83880; 84484; 85025; 85610-TC; 87040-TC; 87070; 87070-TC; 87075-TC; 87081; 87086; 93005; 94640; 94760; 99285; C1758; C1769; C2625; G0378; J0456; J0692; J0696; J1956; J7030; J7050; J7060; J7613; J7626; Q9967

== ENCOUNTER 2018-12-16 18:22 | Emergency (ER) | payer BC ==
[~2018-12-16] VITALS: Ht 160 cm; Wt 88.9 kg
[~2018-12-16 18:22] MED LIST changes: +ALBMDI INH; +BUDE0.5A INH; -IBUP-1971 PO; +IPRA3AMP9 INH; +LEVO750T45 PO; +MONT10TA22 PO; -SOLI10TA2 PO; +TAMS-11 PO; -TRAM-350 PO
[2018-12-16 18:25] VITALS: BP_SYST 122
[2018-12-16] MEDS ORDERED: NACL 0.9% 1,000 ML IV ONE (20:29)
[2018-12-16 20:49] LABS: BILIRUBIN,URINE 1+ (NEGATIVE); BLOOD, URINE 3+ (NEGATIVE); CLARITY/URINE CLOUDY (CLEAR); COLOR,URINE YELLOW (YELLOW); GLUCOSE,URINE NEGATIVE (NEGATIVE); KETONES,URINE 1+ (NEGATIVE); LEUKOCYTE ESTERASE ,URINE 2+ (NEGATIVE); NITRITE, URINE NEGATIVE (NEGATIVE); PROTEIN URINE 3+ (NEGATIVE)
[2018-12-16 21:01] LABS: BACTERIA,URINE FEW /HPF (None Seen); RBC,URINE 20-50 /HPF (0-3); WBC,URINE 50-80 /HPF (0-3)
[2018-12-16 21:16] LABS: BASOPHILS # (AUTO) 0.1 K/uL (0.0-0.2); BASOPHILS % (AUTO) 0.6 % (0.0-2.0); EOSINOPHILS # (AUTO) 0.2 K/uL (0.0-0.4); EOSINOPHILS % (AUTO) 1.5 % (0.0-4.0); HEMATOCRIT 29.7 % (36-48); HEMOGLOBIN 9.8 g/dL (12.0-16.0); LYMPHOCYTES # (AUTO) 2.7 K/uL (1.0-5.5); LYMPHOCYTES % (AUTO) 24.7 % (20.5-51.5); MEAN CORPUSCULAR HEMOGLOBIN 31 pg (27-31); MEAN CORPUSCULAR HGB CONC 33 % (32-36); MEAN CORPUSCULAR VOLUME 94 fL (79.0-98.0); MONOCYTES # (AUTO) 0.8 K/uL (0.0-1.0); MONOCYTES % (AUTO) 6.9 % (1.7-9.3); NEUTROPHILS # (AUTO) 7.3 K/uL (1.8-7.7); NEUTROPHILS % (AUTO) 66.3 % (40.0-70.0); PLATELET COUNT (AUTO) 220 K/uL (130-430); RED BLOOD CELL COUNT(AUTO) 3.17 MIL/uL (4.2-6.2); RED CELL DISTRIBUTION WIDTH 13.5 % (9.0-15.0)
[2018-12-16 21:34] LABS: CALCIUM 7.1 mg/dL (8.4-11.0); CREATININE 1.89 mg/dL (0.55-1.30); POTASSIUM 3.5 mmol/L (3.5-5.1)
[2018-12-16 21:39] LABS: TOTAL BILIRUBIN 0.4 mg/dL (0.0-1.0)
[2018-12-16 21:58] LABS: INR 1.1 (0.8-1.2); PROTHROMBIN TIME 10.8 SECS (9.5-12.5)
[2018-12-16] MEDS ORDERED: PHENAZOPYRIDINE HCL 100 MG TABLET PO ONE (23:15)
[2018-12-17 00:38] VITALS: BP_SYST 122
== END 2018-12-17 00:38 | disposition home or self-care (01) ==
LOC: SED 18:22
DX: N20.0 Calculus of kidney (principal); N39.0 Urinary tract infection, site not specified; E11.9 Type 2 diabetes mellitus without complications; I10 Essential (primary) hypertension; E78.00 Pure hypercholesterolemia, unspecified; Z90.49 Acquired absence of other specified parts of digestive tract; Z90.710 Acquired absence of both cervix and uterus; Z79.899 Other long term (current) drug therapy
CPT/HCPCS: 36415; 71045; 74176; 80053; 81000; 83605; 85025; 85610; 85730; 87040; 87086; 93005; 96361; 96365; 99284; J1956; J7030

== ENCOUNTER 2018-12-19 11:25 | Observation (INO) | payer BC ==
[~2018-12-19] VITALS: Ht 160 cm; Wt 87.5 kg
[2018-12-19 11:27] VITALS: BP_SYST 115
[2018-12-19] MEDS ORDERED: ONDANSETRON 4 MG ODT TAB PO ONE (11:45)
[2018-12-19 12:40] LABS: BASOPHILS % (AUTO) 0.4 % (0.0-2.0); EOSINOPHILS # (AUTO) 0.1 K/uL (0.0-0.4); EOSINOPHILS % (AUTO) 1.3 % (0.0-4.0); HEMATOCRIT 32.7 % (36-48); LYMPHOCYTES # (AUTO) 0.8 K/uL (1.0-5.5); LYMPHOCYTES % (AUTO) 10.5 % (20.5-51.5); MEAN CORPUSCULAR HEMOGLOBIN 31 pg (27-31); MEAN CORPUSCULAR HGB CONC 34 % (32-36); MEAN CORPUSCULAR VOLUME 93 fL (79.0-98.0); MONOCYTES # (AUTO) 0.5 K/uL (0.0-1.0); MONOCYTES % (AUTO) 6.9 % (1.7-9.3); NEUTROPHILS # (AUTO) 6.4 K/uL (1.8-7.7); NEUTROPHILS % (AUTO) 80.9 % (40.0-70.0); PLATELET COUNT (AUTO) 238 K/uL (130-430); RED BLOOD CELL COUNT(AUTO) 3.54 MIL/uL (4.2-6.2); RED CELL DISTRIBUTION WIDTH 13.3 % (9.0-15.0); WHITE BLOOD COUNT (AUTO) 7.9 K/uL (4.8-10.8)
[2018-12-19 12:56] LABS: CALCIUM 7.7 mg/dL (8.4-11.0); CREATININE 1.94 mg/dL (0.55-1.30); POTASSIUM 3.2 mmol/L (3.5-5.1)
[2018-12-19 12:58] LABS: INR 1.2 (0.8-1.2); PROTHROMBIN TIME 11.8 SECS (9.5-12.5)
[2018-12-19 13:00] LABS: ALBUMIN 3.3 g/dL (3.4-4.8); TOTAL BILIRUBIN 0.5 mg/dL (0.0-1.0)
[2018-12-19] MEDS ORDERED: cefTRIAXone 1 GM in LIDOCAINE 1%, 20 ML MDV 2.1 ML IM ONE (14:00)
[2018-12-19] MEDS ORDERED: ONDANSETRON HCL 4 MG/2 ML VIAL IVP ONE (15:00)
[2018-12-19] MEDS ORDERED: NACL 0.9% 1,000 ML IV ONE (15:30)
[2018-12-19] MEDS ORDERED: FLUO40CA8 PO (15:31)
[2018-12-19] MEDS ORDERED: AMOX-426 PO (15:31)
[2018-12-19] MEDS ORDERED: PHEN-622 PO (15:31)
[2018-12-19] MEDS ORDERED: NOR10 PO (15:31)
[2018-12-19] MEDS ORDERED: FAMO40TA7 PO (15:31)
[2018-12-19] MEDS ORDERED: ATOR20TA64 PO (15:31)
[2018-12-19] MEDS ORDERED: GLU500 PO (15:31)
[2018-12-19] MEDS ORDERED: SOLI10TA2 PO (15:31)
[2018-12-19 16:29] VITALS: BP_SYST 135
[2018-12-19] MEDS ORDERED: ONDANSETRON HCL 4 MG/2 ML VIAL IVP PRN ×2 (17:00)
[2018-12-19] MEDS ORDERED: METOCLOPRAMIDE HCL 10 MG/2 ML VIAL IVP PRN ×2 (17:00)
[2018-12-19] MEDS: D5NS 1,000 ML IV SCH (17:28)
[2018-12-19] MEDS ORDERED: cefTRIAXone 1 GM IVPB PREMIX 50 ML IV SCH (18:00)
[2018-12-19 20:17] VITALS: BP_SYST 137
[2018-12-19 22:35] LABS: BILIRUBIN,URINE 2+ (NEGATIVE); CLARITY/URINE CLEAR (CLEAR); COLOR,URINE YELLOW (YELLOW); GLUCOSE,URINE TRACE (NEGATIVE); KETONES,URINE TRACE (NEGATIVE); LEUKOCYTE ESTERASE ,URINE 2+ (NEGATIVE); NITRITE, URINE POSITIVE (NEGATIVE); PH,URINE 5.5 (5.0-8.0); PROTEIN URINE 3+ (NEGATIVE)
[2018-12-19 22:36] LABS: BLOOD, URINE TRACE (NEGATIVE); UROBILINOGEN,URINE >=8 (0.2-1.0)
[2018-12-19 22:42] LABS: BACTERIA,URINE MANY /HPF (None Seen); WBC,URINE 50-80 /HPF (0-3); YEAST,URINE Moderate /HPF (None Seen)
[2018-12-20 00:33] VITALS: BP_SYST 108
[2018-12-20] MEDS: D5NS 1,000 ML IV SCH (04:08)
[2018-12-20 08:00] VITALS: BP_SYST 111
[2018-12-20] MEDS ORDERED: FLUoxetine HCL 20 MG CAPSULE (PROzac) PO ONE (09:00)
[2018-12-20] MEDS ORDERED: amLODIPine BESYLATE 10 MG TABLET PO ONE (09:00)
[2018-12-20] MEDS ORDERED: FAMOTIDINE 20 MG TABLET PO ONE (09:00)
[2018-12-20] MEDS ORDERED: ATORVASTATIN 20 MG TABLET PO SCH ×2 (09:00→21:00)
[2018-12-20 09:30] LABS: BASOPHILS % (AUTO) 0.5 % (0.0-2.0); EOSINOPHILS # (AUTO) 0.2 K/uL (0.0-0.4); EOSINOPHILS % (AUTO) 2.3 % (0.0-4.0); HEMATOCRIT 28.6 % (36-48); HEMOGLOBIN 9.4 g/dL (12.0-16.0); LYMPHOCYTES # (AUTO) 1.3 K/uL (1.0-5.5); LYMPHOCYTES % (AUTO) 17.8 % (20.5-51.5); MEAN CORPUSCULAR HEMOGLOBIN 31 pg (27-31); MEAN CORPUSCULAR HGB CONC 33 % (32-36); MEAN CORPUSCULAR VOLUME 93 fL (79.0-98.0); MONOCYTES # (AUTO) 0.6 K/uL (0.0-1.0); MONOCYTES % (AUTO) 8.2 % (1.7-9.3); NEUTROPHILS # (AUTO) 5.1 K/uL (1.8-7.7); NEUTROPHILS % (AUTO) 71.2 % (40.0-70.0); PLATELET COUNT (AUTO) 173 K/uL (130-430); RED BLOOD CELL COUNT(AUTO) 3.07 MIL/uL (4.2-6.2); RED CELL DISTRIBUTION WIDTH 13.3 % (9.0-15.0); WHITE BLOOD COUNT (AUTO) 7.1 K/uL (4.8-10.8)
[2018-12-20 09:41] LABS: CREATININE 1.77 mg/dL (0.55-1.30); POTASSIUM 3.1 mmol/L (3.5-5.1)
[2018-12-20 09:46] LABS: ALBUMIN 2.8 g/dL (3.4-4.8); TOTAL BILIRUBIN 0.3 mg/dL (0.0-1.0)
[2018-12-20 09:49] LABS: CALCIUM 6.6 mg/dL (8.4-11.0)
[2018-12-20] MEDS ORDERED: POTASSIUM CHLORIDE 20 MEQ TAB.PRT.SR PO ONE (12:30)
[2018-12-20 12:40] VITALS: BP_SYST 114
[2018-12-20 17:09] VITALS: BP_SYST 114
[2018-12-20 17:29] VITALS: BP_SYST 114
[2018-12-20] MEDS ORDERED: MONTELUKAST 10 MG TABLET PO SCH (21:00)
[2018-12-21] MEDS ORDERED: FLUoxetine HCL 20 MG CAPSULE (PROzac) PO SCH (09:00)
[2018-12-21] MEDS ORDERED: amLODIPine BESYLATE 10 MG TABLET PO SCH (09:00)
[2018-12-21] MEDS ORDERED: FAMOTIDINE 20 MG TABLET PO SCH (09:00)
== END 2018-12-20 17:30 | disposition home or self-care (01) ==
LOC: SED 11:25 → SMU 15:24
PROVIDERS: ADMIT Internal Medicine Hospice and Palliative Medicine; ATTEND Internal Medicine Hospice and Palliative Medicine
DX: N39.0 Urinary tract infection, site not specified (principal); E11.9 Type 2 diabetes mellitus without complications; I10 Essential (primary) hypertension; J44.9 Chronic obstructive pulmonary disease, unspecified; E78.00 Pure hypercholesterolemia, unspecified; Z87.442 Personal history of urinary calculi; Z90.710 Acquired absence of both cervix and uterus
CPT/HCPCS: 36415 ×2; 74018; 80053 ×2; 81000; 82150; 83605; 83690; 85025 ×2; 85610; 85730; 96365; 96372; 96375; 99285; G0378 ×2; J0696 ×2; J2001; J2405; J7042 ×2; Q0162; 96361; 96374